=== PATIENT | male | born 1940 | race Caucasian/White ===

== ENCOUNTER → 2020-10-12 16:48 | Outpatient (CLI) | payer MEDICARE ==
[2020-10-12 18:46] LABS: HEMOGLOBIN 10.4 g/dL (13.5-17.5); MCH 23.1 pg (26.0-34.0); MCHC 32.5 g/dL (31.0-37.0); MEAN PLATELET VOLUME 8.8 fL (7.4-10.4); PLATELET COUNT 304 10x3/uL (130-400); RBC 4.51 10x6/uL (4.20-6.10); RDW 22.3 % (11.5-14.5); WBC 10.6 10x3/uL (4.8-10.8)
[2020-10-12 19:02] LABS: ALBUMIN 2.6 g/dL (3.4-5.0); ANION GAP 12.3 mmol/L (8-16); BILIRUBIN - TOTAL 0.94 mg/dL (0.2-1.3); CALCIUM 9.1 mg/dL (8.5-10.1); CREATININE - SERUM 1.3 mg/dL (0.6-1.3); POTASSIUM - SERUM 4.3 mmol/L (3.5-5.1); PROTEIN - SERUM 6.9 g/dL (6.4-8.2)
[2020-10-12 19:23] LABS: EOSINOPHILS 1 % (0-7); LYMPHOCYTES 14 % (15-50); MONOCYTES 23 % (2-11); NEUTROPHILS 57 % (40-80); PLATELET ESTIMATE NORMAL
== END | disposition home or self-care (01) ==
LOC: D.LABREF 16:48
PROVIDERS: ATTEND Family Medicine
DX: Z48.89 Encounter for other specified surgical aftercare (principal)